=== PATIENT | male | born 1970 | race Caucasian/White ===

== ENCOUNTER 2021-08-05 07:37 | Emergency (ER) | payer OTHER ==
[~2021-08-05] VITALS: Ht 185.4 cm; Wt 86.2 kg
--- NOTE | 2021-08-05 07:52 | NUR ---
Soft neck collar placed by . Suture repair by in progress. [employer] officers [email or web address].
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
[2021-08-05] MEDS ORDERED: TDAP DIPH,PERTUSS,TET VAC/PF 0.5 ML DISP.SYRIN IM ONE ×2 (07:54→08:15)
[2021-08-05] MEDS ORDERED: IV NORMAL SALINE 1000 ML BAG IV ONE (08:15)
[2021-08-05] MEDS ORDERED: ONDANSETRON 4 MG/2 ML VIAL IV ONE (08:15)
[2021-08-05] MEDS ORDERED: ONDANSETRON 4 MG/2 ML VIAL ONE (08:32)
[2021-08-05 08:42] LABS: HEMATOCRIT 41.4 % (36.7-47.1); MEAN CORPUSCULAR VOLUME 93.4 fL (73.0-96.2); PLATELET COUNT (AUTO) 283 K/uL (152-348)
[2021-08-05 09:06] LABS: CREATININE 1.2 mg/dL (0.6-1.3); POTASSIUM 3.3 mmol/L (3.5-5.1)
[2021-08-05 09:18] LABS: BILIRUBIN,DIRECT 0.1 mg/dL (0.0-0.2); BILIRUBIN,TOTAL 0.4 mg/dL (0.2-1.0); TOTAL PROTEIN, SERUM 8.3 g/dL (6.4-8.2)
[2021-08-05] MEDS ORDERED: SWABABLE VALVE TRANSFER SET EA MC ONE (09:21)
[2021-08-05] MEDS ORDERED: IOHEXOL 300MG/ML 100 ML INFUS..BTL ONE (09:21)
[2021-08-05] MEDS ORDERED: IV NORMAL SALINE 250 ML IV ONE (09:21)
--- NOTE | 2021-08-05 09:22 | NUR ---
Patient taken to radiology at this time for CT
[2021-08-05] MEDS ORDERED: POTASSIUM BICARBONATE/CIT AC 25 MEQ TABLET.EFF PO ONE (09:30)
[2021-08-05] MEDS ORDERED: POTASSIUM BICARBONATE/CIT AC 25 MEQ TABLET.EFF ONE (09:49)
--- NOTE | 2021-08-05 11:07 | NUR ---
Patient discharged to home in stable condition. Patient instructed to follow up with primary physician. Written and verbal after care instructions given. Patient verbalizes understanding of instructions. Stressed follow up or return to ER for worsening s/s.
[2021-08-05 11:39] VITALS: BP 140/77
== END 2021-08-05 11:07 | disposition home or self-care (01) ==
LOC: ER 07:37
DX: S02.2XXA Fracture of nasal bones, initial encounter for closed fracture (principal); S01.81XA Laceration without foreign body of other part of head, initial encounter; S50.312A Abrasion of left elbow, initial encounter; Y04.2XXA Assault by strike against or bumped into by another person, initial encounter; Y92.39 Other specified sports and athletic area as the place of occurrence of the external cause; F10.129 Alcohol abuse with intoxication, unspecified; Y90.7 Blood alcohol level of 200-239 mg/100 ml; J32.9 Chronic sinusitis, unspecified; K57.90 Diverticulosis of intestine, part unspecified, without perforation or abscess without bleeding
CPT/HCPCS: 12013; 36415; 70450; 70486; 71260; 72125; 74177; 80048; 80076; 80320; 85025; 85730; 86850; 86900; 86901; 90471; 90715; 96361; 96374; 99285; J2405; Q9967; A4217; A4663; G0480; J7030; J7050